=== PATIENT | male | born 1985 | race Caucasian/White ===

== ENCOUNTER 2017-03-09 09:40 | Inpatient (IN) | payer SELFPAY ==
[~2017-03-09] VITALS: Ht 172.7 cm; Wt 114.8 kg
[~2017-03-09 09:40] MED LIST: LEVO500T2 PO; MESA0.37 PO
[2017-03-09] MEDS ORDERED: IOPAMIDOL-370 75 ML VIAL IV ONE (10:09)
[2017-03-09] MEDS ORDERED: SODIUM CHLORIDE 0.9% 1000ML 2,000 ML IV ONE ×2 (10:18→10:22)
[2017-03-09] MEDS ORDERED: ZOSYN 3.375GM+NS 50ML 0 ML IV ONE (10:19)
[2017-03-09] MEDS ORDERED: HYOSCYAMINE SULFATE 0.125 MG TAB.SUBL SL ONE (10:19)
[2017-03-09] MEDS ORDERED: ACETAMINOPHEN 325 MG TAB ONE (10:22)
[2017-03-09] MEDS ORDERED: ZOSYN 3.375GM+NS 50ML 50 ML IV ONE (10:22)
[2017-03-09 10:33] LABS: BASOPHILS % (AUTO) 0.3 % (0.0-5.0); HEMATOCRIT 39.6 % (42-54); LYMPHOCYTES % (AUTO) 8.7 % (21.0-51.0); MEAN CORPUSCULAR HGB CONC 31.9 g/dL (32.0-36.0); MEAN CORPUSCULAR VOLUME 75.1 fL (79-99); PLATELET COUNT (AUTO) 464 K/uL (130-400); RED BLOOD CELL COUNT(AUTO) 5.28 MIL/uL (4.50-6.20); RED CELL DISTRIBUTION WIDTH 15.8 % (11.0-15.5); WHITE BLOOD COUNT (AUTO) 20.7 K/uL (4.8-10.8)
[2017-03-09 10:34] LABS: POTASSIUM 3.3 mmol/L (3.5-5.1)
[2017-03-09 10:39] LABS: ALBUMIN 2.9 g/dL (3.5-5.0); BILIRUBIN,TOTAL 0.2 mg/dL (0.2-1.0)
[2017-03-09] MEDS ORDERED: POTASSIUM CHLORIDE 20 MEQ ERTAB PO ONE (10:57)
[2017-03-09 12:11] LABS: APPEARANCE,URINE Clear (CLEAR); BILIRUBIN,URINE Negative (NEGATIVE); COLOR,URINE Yellow (YELLOW); GLUCOSE, URINE (UA) Negative (NEGATIVE); KETONES,URINE Negative (NEGATIVE); LEUKOCYTE ESTERASE ,URINE Negative (NEGATIVE); NITRATE,URINE Negative (NEGATIVE); OCCULT BLOOD,URINE Negative (NEGATIVE); PH,URINE 7.5 (5.0-8.0); PROTEIN,URINE Negative (NEGATIVE); UROBILINOGEN,URINE 0.2 mg/dL (0.2-1.0)
[2017-03-09] MEDS ORDERED: SODIUM CHLORIDE 0.9% 1000ML 1,000 ML IV ONE (14:58)
[2017-03-09] MEDS ORDERED: LEVOFLOXACIN 500 MG/D5W 100 ML 100 ML IV ONE (14:59)
[2017-03-09 19:00] VITALS: BP 134/68
[2017-03-09] MEDS: LEVOFLOXACIN 500 MG/D5W 100 ML 100 ML IV SCH (20:01)
[2017-03-09] MEDS: SODIUM CHLORIDE 0.9% 1000ML 1,000 ML IV SCH (20:01)
[2017-03-09] MEDS: METRONIDAZOLE 500MG/100ML BAG 100 ML IVPB SCH (20:22)
[2017-03-09] MEDS ORDERED: METHYLPREDNISOLONE SOD SUCC 125MG/2ML VIAL IVP ONE (21:00)
[2017-03-09] MEDS ORDERED: METHYLPREDNISOLONE SOD SUCC 40MG/ML 1ML IVP SCH (21:00)
[2017-03-09] MEDS ORDERED: DICYCLOMINE HCL 20 MG TAB PO PRN ×2 (21:00→21:15)
[2017-03-09] MEDS: METHYLPREDNISOLONE SOD SUCC 40MG/ML 1ML IVP SCH (21:15)
[2017-03-09 23:00] VITALS: BP 138/78
[2017-03-10] MEDS ORDERED: HYDRALAZINE HCL 20 MG/ML VIAL IV PRN (01:00)
[2017-03-10] MEDS ORDERED: ACETAMINOPHEN 325 MG TAB PO PRN (01:00)
[2017-03-10] MEDS ORDERED: ONDANSETRON HCL 4 MG/2 ML VIAL IV PRN (01:00)
[2017-03-10] MEDS ORDERED: ACETAMINOPHEN-CODEINE 300/30MG TAB PO PRN (01:00)
[2017-03-10 03:00] VITALS: BP 130/80
[2017-03-10] MEDS: METRONIDAZOLE 500MG/100ML BAG 100 ML IVPB SCH ×3 (04:52→21:42)
[2017-03-10] MEDS: METHYLPREDNISOLONE SOD SUCC 40MG/ML 1ML IVP SCH ×3 (04:52→20:39)
[2017-03-10] MEDS: SODIUM CHLORIDE 0.9% 1000ML 1,000 ML IV SCH ×2 (05:16→15:45)
[2017-03-10 05:36] LABS: HEMATOCRIT 36.4 % (42-54); MEAN CORPUSCULAR HEMOGLOBIN 24.2 pg (27.0-33.0); MEAN CORPUSCULAR HGB CONC 31.8 g/dL (32.0-36.0); MEAN CORPUSCULAR VOLUME 76.1 fL (79-99); PLATELET COUNT (AUTO) 430 K/uL (130-400); RED BLOOD CELL COUNT(AUTO) 4.78 MIL/uL (4.50-6.20); RED CELL DISTRIBUTION WIDTH 15.5 % (11.0-15.5); WHITE BLOOD COUNT (AUTO) 17.3 K/uL (4.8-10.8)
[2017-03-10 05:52] LABS: ALBUMIN 2.8 g/dL (3.5-5.0); BILIRUBIN,TOTAL 0.2 mg/dL (0.2-1.0); CREATININE 0.9 mg/dL (0.5-1.5); POTASSIUM 4.5 mmol/L (3.5-5.1); TOTAL PROTEIN, SERUM 7.7 g/dL (6.0-8.3)
[2017-03-10 07:35] VITALS: BP 136/81
[2017-03-10] MEDS ORDERED: PANTOPRAZOLE 40 MG/VIAL IVP SCH (09:00)
[2017-03-10 11:24] VITALS: BP 123/73
[2017-03-10] MEDS: PANTOPRAZOLE SODIUM 40 MG TABLET.DR PO SCH (13:30)
[2017-03-10 16:21] VITALS: BP 134/84
[2017-03-10 19:48] VITALS: BP 128/75
[2017-03-10] MEDS: LEVOFLOXACIN 500 MG/D5W 100 ML 100 ML IV SCH (20:39)
[2017-03-11] VITALS: BP 138/71
[2017-03-11] MEDS: SODIUM CHLORIDE 0.9% 1000ML 1,000 ML IV SCH ×2 (01:41→13:13)
[2017-03-11 04:03] VITALS: BP 126/69
[2017-03-11] MEDS: METRONIDAZOLE 500MG/100ML BAG 100 ML IVPB SCH ×2 (04:38→13:13)
[2017-03-11 05:50] LABS: MEAN CORPUSCULAR VOLUME 74.8 fL (79-99); PLATELET COUNT (AUTO) 456 K/uL (130-400); RED BLOOD CELL COUNT(AUTO) 4.54 MIL/uL (4.50-6.20); RED CELL DISTRIBUTION WIDTH 15.5 % (11.0-15.5); WHITE BLOOD COUNT (AUTO) 18.6 K/uL (4.8-10.8)
[2017-03-11 05:55] LABS: CREATININE 0.9 mg/dL (0.5-1.5); POTASSIUM 4.2 mmol/L (3.5-5.1)
[2017-03-11 06:06] LABS: BAND NEUTROPHILS % (MANUAL) 1 % (0-2); LYMPHOCYTES % (MANUAL) 4 % (22-44); MAN.DIFF COMMENT-IMPRESSION MANUAL DIFFERENTIAL; MONOCYTES % (MANUAL) 3 % (2-9); PLATELET MORPHOLOGY COMMENT SLIGHT INCREASED; SEGMENTED NEUTROPHILS % 92 % (40-70)
[2017-03-11 07:30] VITALS: BP 156/78
[2017-03-11] MEDS ORDERED: METHYLPREDNISOLONE SOD SUCC 40MG/ML 1ML IVP SCH (09:00)
[2017-03-11] MEDS: PANTOPRAZOLE SODIUM 40 MG TABLET.DR PO SCH (09:22)
[2017-03-11 11:00] VITALS: BP 135/67
[2017-03-11 16:00] VITALS: BP 137/87
== END 2017-03-11 17:11 | disposition home or self-care (01) | DRG 387 ==
LOC: EDH 09:40 → EDHIP 09:41 → 4BH 18:44
PROVIDERS: ADMIT Family Medicine; ATTEND Family Medicine
DX: K51.90 Ulcerative colitis, unspecified, without complications (principal); D50.9 Iron deficiency anemia, unspecified; D47.3 Essential (hemorrhagic) thrombocythemia; D72.829 Elevated white blood cell count, unspecified; E66.9 Obesity, unspecified; E87.6 Hypokalemia; Z68.38 Body mass index [BMI] 38.0-38.9, adult
CPT/HCPCS: 36415; 71045; 74177; 80048; 80053; 81003; 82270; 83605; 85025; 85027; 85651; 86141; 87040; 87088; 87205; 87324; 87507; 87804; C9113; J1956; J2543; J2920; J2930; J3490; J7030; Q9967

== ENCOUNTER 2017-03-17 09:09 | Emergency (ER) | payer SELFPAY ==
[~2017-03-17 09:09] MED LIST changes: -LEVO500T2 PO
[2017-03-17] MEDS ORDERED: ONDANSETRON HCL 4 MG/2 ML VIAL ONE (09:27)
[2017-03-17] MEDS ORDERED: SODIUM CHLORIDE 0.9% 1000ML 1,000 ML IV ONE (09:27)
[2017-03-17 09:56] LABS: HEMATOCRIT 38.2 % (42-54); MEAN CORPUSCULAR HEMOGLOBIN 23.8 pg (27.0-33.0); MEAN CORPUSCULAR HGB CONC 32.1 g/dL (32.0-36.0); MEAN CORPUSCULAR VOLUME 74.2 fL (79-99); PLATELET COUNT (AUTO) 522 K/uL (130-400); RED BLOOD CELL COUNT(AUTO) 5.15 MIL/uL (4.50-6.20); WHITE BLOOD COUNT (AUTO) 20.3 K/uL (4.8-10.8)
[2017-03-17 10:02] LABS: CREATININE 1.1 mg/dL (0.5-1.5); POTASSIUM 3.2 mmol/L (3.5-5.1)
[2017-03-17 10:10] LABS: INR 1.05 (0.85-1.15); PARTIAL THROMBOPLASTIN TIME 28.2 SEC (26.3-35.5)
[2017-03-17 10:27] LABS: AMPHET/METH SCREEN,URINE NEGATIVE (NEGATIVE); BARBITURATE SCREEN, URINE NEGATIVE (NEGATIVE); BENZODIAZEPINES SCREEN,URINE NEGATIVE (NEGATIVE); CANNABINOID SCREEN,URINE NEGATIVE (NEGATIVE); COCAINE SCREEN,URINE NEGATIVE (NEGATIVE); OPIATE SCREEN,URINE NEGATIVE (NEGATIVE); PHENCYCLIDINE SCREEN,URINE NEGATIVE (NEGATIVE)
[2017-03-17 11:03] LABS: LYMPHOCYTES % (MANUAL) 6 % (22-44); MAN.DIFF COMMENT-IMPRESSION MANUAL DIFFERENTIAL; SEGMENTED NEUTROPHILS % 94 % (40-70)
[2017-03-17 11:04] LABS: PLATELET MORPHOLOGY COMMENT MARKED INCREASED
== END 2017-03-17 13:11 | disposition home or self-care (01) ==
LOC: EDH 09:09
DX: K51.90 Ulcerative colitis, unspecified, without complications (principal); E86.0 Dehydration; Z88.6 Allergy status to analgesic agent; Z87.891 Personal history of nicotine dependence
CPT/HCPCS: 36415; 80048; 80305; 82550; 83690; 85025; 85610; 85730; 96361; 96374; 99284; J2405; J7030

== ENCOUNTER 2017-11-16 14:49 | Emergency (ER) | payer OTHER | END 2017-11-16 15:52 | disposition home or self-care (01) | LOC: EDH 14:49 | DX: S62.644A Nondisplaced fracture of proximal phalanx of right ring finger, initial encounter for closed fracture (principal); Z88.6 Allergy status to analgesic agent; Z72.0 Tobacco use; W51.XXXA Accidental striking against or bumped into by another person, initial encounter; Y93.72 Activity, wrestling; Y92.098 Other place in other non-institutional residence as the place of occurrence of the external cause; Y99.8 Other external cause status | CPT/HCPCS: 29130; 73130 ==

== ENCOUNTER 2019-02-18 07:53 | Emergency (ER) | payer OTHER ==
[2019-02-18] MEDS ORDERED: LOPERAMIDE HCL 2 MG CAP PO ONE (08:20)
[2019-02-18] MEDS ORDERED: SODIUM CHLORIDE 0.9% 1000ML 1,000 ML IV ONE (08:21)
[2019-02-18 08:26] LABS: BASOPHILS % (AUTO) 0.6 % (0.0-5.0); EOSINOPHILS % (AUTO) 1.8 % (0.0-8.0); HEMATOCRIT 42.5 % (42-54); LYMPHOCYTES % (AUTO) 13.8 % (21.0-51.0); MEAN CORPUSCULAR HEMOGLOBIN 27.4 pg (27.0-33.0); MEAN CORPUSCULAR HGB CONC 33.2 g/dL (32.0-36.0); MEAN CORPUSCULAR VOLUME 82.7 fL (79-99); MONOCYTES % (AUTO) 8.6 % (3.0-13.0); NEUTROPHILS % (AUTO) 72.9 % (40.0-77.0); PLATELET COUNT (AUTO) 594 K/uL (130-400); RED BLOOD CELL COUNT(AUTO) 5.14 MIL/uL (4.50-6.20); WHITE BLOOD COUNT (AUTO) 16.1 K/uL (4.8-10.8)
[2019-02-18 08:46] LABS: POTASSIUM 3.5 mmol/L (3.5-5.1)
[2019-02-18 08:51] LABS: ALBUMIN 2.9 g/dL (3.5-5.0); BILIRUBIN,TOTAL 0.3 mg/dL (0.2-1.0); TOTAL PROTEIN, SERUM 7.7 g/dL (6.0-8.3)
[2019-02-18] MEDS ORDERED: DICYCLOMINE HCL 20 MG TAB ONE (09:40)
== END 2019-02-18 09:59 | disposition home or self-care (01) ==
LOC: EDH 07:53
DX: K51.90 Ulcerative colitis, unspecified, without complications (principal); K92.1 Melena; R19.7 Diarrhea, unspecified; Z88.6 Allergy status to analgesic agent; Z87.891 Personal history of nicotine dependence
CPT/HCPCS: 36415; 80053; 85025; 96360; 96361; 99285; J7030